=== PATIENT | female | born 1995 | race Caucasian/White ===

== ENCOUNTER 2018-11-30 21:57 | Emergency (ER) | payer MEDICAID ==
[~2018-11-30] VITALS: Ht 162.6 cm; Wt 69.5 kg
[2018-11-30 22:11] VITALS: Ht 162.6 cm; Wt 69.5 kg
[2018-11-30] MEDS ORDERED: MOBIC7.5 MG PO (22:12)
[2018-11-30] MEDS ORDERED: SPRINTEC (22:12)
[2018-11-30 22:56] LABS: BASOPHILS 0.1 % (0-2); EOSINOPHILS 4.4 % (0-7); HEMATOCRIT 33.9 % (36.0-48.0); HEMOGLOBIN 11.3 g/dL (12-16); IMMATURE GRANULOCYTES 0.2 % (0-5); MCH 27.9 pg (26.0-34.0); MCHC 33.3 g/dL (31.0-37.0); MCV 83.7 fL (80.0-100.0); MEAN PLATELET VOLUME 12.2 fL (7.4-10.4); MONOCYTES 9.6 % (2-11); NEUTROPHILS 66.7 % (40-80); PLATELET COUNT 182 10x3/uL (130-400); RBC 4.05 10x6/uL (4.00-5.40); RDW 13.4 % (11.5-14.5); WBC 9.2 10x3/uL (4.8-10.8)
[2018-11-30 23:02] LABS: APPEARANCE CLEAR (CLEAR); BILIRUBIN NEGATIVE (NEGATIVE); COLOR YELLOW (YELLOW); GLUCOSE NEGATIVE (NEGATIVE); HCG URINE NEGATIVE (NEGATIVE); KETONE NEGATIVE (NEGATIVE); NITRITE NEGATIVE (NEGATIVE); PROTEIN NEGATIVE (NEGATIVE); UROBILINOGEN NORMAL (NORMAL)
[2018-11-30 23:06] LABS: ALBUMIN 3.3 g/dL (3.4-5.0); ALKALINE PHOSPHATASE 72 U/L (46-116); ALT (SGPT) 12 U/L (10-68); BILIRUBIN - TOTAL 0.87 mg/dL (0.2-1.3); CALC OSMOLALITY 276 mosm/kg (275-300); CALCIUM 8.8 mg/dL (8.5-10.1); CARBON DIOXIDE 24.5 mmol/L (21.0-32.0); CHLORIDE - SERUM 102 mmol/L (98-107); CREATININE - SERUM 0.8 mg/dL (0.6-1.3); GLUCOSE 107 mg/dL (74-106); POTASSIUM - SERUM 3.7 mmol/L (3.5-5.1); PROTEIN - SERUM 7.5 g/dL (6.4-8.2); SODIUM 139 mmol/L (136-145); UREA NITROGEN 9 mg/dL (7-18); eGFR NON AFRICAN AMERICAN > 90 mL/min (90-120)
[2018-12-01] MEDS ORDERED: MIRALAX17 GM PO (00:38)
[2018-12-01 00:55] VITALS: BP 125/80
== END 2018-12-01 00:55 | disposition home or self-care (01) ==
LOC: D.ER 21:57
PROVIDERS: Emergency Medicine
DX: K59.00 Constipation, unspecified (principal); M54.5 Low back pain